=== PATIENT | male | born 1990 | race Caucasian/White ===

== ENCOUNTER 2017-03-01 18:36 | Emergency (ER) | payer BC ==
[2017-03-01 18:57] VITALS: BP 139/81
--- NOTE | 2017-03-01 19:12 | EDM.PDOC ---
ED HPI GENERAL MEDICAL PROBLEM - General Chief Complaint: Eye Problems Stated Complaint: POSS RIGHT EYE INJURY Time Seen by Provider: 03/01/17 19:08 - History of Present Illness INITIAL COMMENTS - FREE TEXT/NARRATIVE: 26-year-old male presents emergency room with an eye injury. Patient developed some eye discomfort early this morning while at work. He cannot recall exactly what may have happened or what could've got into his eye. 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 Last tetanus shot about a year ago. Right Eye Pain Score (Numeric/FACES): 0 - Related Data Allergies Allergy/AdvReac Type Severity Reaction Status Date / Time No Known Allergies Allergy Verified 03/01/17 18:57 Home Meds: Home Meds Buprenorphine HCl/Naloxone HCl [Suboxone 4 mg-1 mg Sl Film] 6 mg SL DAILY [History] cloNIDine HCl [Clonidine HCl ER] 0.1 mg PO DAILY 03/01/17 [History] ED ROS GENERAL - Review of Systems Review Of Systems: See Below Constitutional: Reports: No Symptoms HEENT: Reports: Eye Pain. Denies: Ear Pain, Rhinitis, Sinus Problem, Vertigo Respiratory: Reports: No Symptoms Cardiovascular: Reports: No Symptoms GI/Abdominal: Reports: No Symptoms ED EXAM GENERAL W FULL EYE - Physical Exam Exam: See Below Exam Limited By: No Limitations General Appearance: Alert, No Apparent Distress Eye Exam: Right Eye: Conjunctival Injection, Corneal Abrasion, Bilateral Eye: EOMI Visual Acuity (R) 20/: 40 Visual Acuity (L) 20/: 20 With Correction: No Eyelids: Bilateral: Normal Appearance Cornea Exam: Right: Corneal Abrasion, Examined with Flourescein Extraocular Movements: Bilateral: Intact Pupillary Reaction: Bilateral: Brisk Anterior Chamber: Bilateral: Normal Appearance Neck: Normal Inspection, Supple, Non-Tender, Full Range of Motion. No: Lymphadenopathy (L), Lymphadenopathy (R) Respiratory/Chest: No Respiratory Distress, Lungs Clear, Normal Breath Sounds Cardiovascular: Regular Rate, Rhythm, No Edema, No Murmur Lymphatic: No Adenopathy Course - Vital Signs Last Recorded V/S: Last Vital Signs Temp 37.0 C 03/01/17 18:54 Pulse 95 03/01/17 18:54 Resp 20 03/01/17 18:54 BP 139/81 03/01/17 18:54 Pulse Ox 96 03/01/17 18:54 - Orders/Labs/Meds Meds: Medications Discontinued Medications Generic Name Dose Route Start Last Admin Trade Name Eze PRN Reason Stop Dose Admin Erythromycin 1 gm 03/01/17 20:51 03/01/17 20:55 Erythromycin 0.5% Ophth Oint EYEBOTH 03/01/17 20:52 1 dose ONETIME ONE Administration Fluorescein Sodium/Benoxinate HCl 1 ml 03/01/17 20:27 03/01/17 20:35 Fluress Ophth Soln EYERT 03/01/17 20:28 1 ml ONETIME ONE Administration Proparacaine HCl 1 ml 03/01/17 20:27 03/01/17 20:33 Proparacaine 0.5% Ophth Soln EYERT 03/01/17 20:28 1 ml ONETIME ONE Administration - Re-Assessments/Exams Free Text/Narrative Re-Assessment/Exam: 03/01/17 21:02 Patient was thoroughly examined around the right eye no obvious foreign bodies were identified. With slit-lamp examination the anterior chamber is clear he's got the obvious healing abrasion at about 7:30 8:00. No foreign bodies identified over the remainder the cornea or remainder of the eye, eyelids inverted no foreign bodies found. The patient's discomfort has been in proving during the course of the day, he does not feel like he needs anything for pain at this time. Departure - Departure Time of Disposition: 21:03 Disposition: Home, Self-Care 01 Clinical Impression: Corneal abrasion - Discharge Information Referrals: PCP,None [Primary Care Provider] - Forms: ED Department Discharge Additional Instructions: Return to the emergency room with any questions problems or worsening symptoms. Your given some erythromycin ointment use about a third of an inch to this to your right eye every couple hours while awake. If you are still having any symptoms in the morning follow-up with one of the local eye doctors to have this rechecked.
[2017-03-01] MEDS ORDERED: Benoxinate/Fluorescein 0.4-0.25% Ophth Soln 5 ML Bottle EYERT ONE (20:27)
[2017-03-01] MEDS ORDERED: Proparacaine 0.5% Ophth Soln 15 ML Bottle EYERT ONE (20:27)
[2017-03-01] MEDS ORDERED: Erythromycin Base 0.5% Ophth Oint 1 GM Tube EYEBOTH ONE (20:51)
== END 2017-03-01 21:10 | disposition home or self-care (01) ==
LOC: JD.ED 18:36
DX: S05.01XA Injury of conjunctiva and corneal abrasion without foreign body, right eye, initial encounter (principal); Z79.899 Other long term (current) drug therapy; X58.XXXA Exposure to other specified factors, initial encounter; Y92.69 Other specified industrial and construction area as the place of occurrence of the external cause; Y99.0 Civilian activity done for income or pay
CPT/HCPCS: 99283; A9270

== ENCOUNTER 2017-04-06 20:30 | Emergency (ER) | payer BC ==
[2017-04-06 20:41] VITALS: BP 148/78
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
[2017-04-06] MEDS ORDERED: Ketorolac 60 MG/2 ML SDV IM ONE (20:55)
== END 2017-04-06 21:23 | disposition home or self-care (01) ==
LOC: JD.ED 20:30
DX: N45.3 Epididymo-orchitis (principal); N41.9 Inflammatory disease of prostate, unspecified; I10 Essential (primary) hypertension; F17.210 Nicotine dependence, cigarettes, uncomplicated; Z79.899 Other long term (current) drug therapy
CPT/HCPCS: 96372; 99284; J1885

== ENCOUNTER 2017-05-10 18:06 | Emergency (ER) | payer BC ==
[2017-05-10 18:24] VITALS: BP 165/87
[2017-05-10] MEDS ORDERED: Ketorolac 60 MG/2 ML SDV IM ONE (18:30)
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
== END 2017-05-10 18:54 | disposition home or self-care (01) ==
LOC: JD.ED 18:06
DX: N45.3 Epididymo-orchitis (principal); I10 Essential (primary) hypertension; Z79.899 Other long term (current) drug therapy
CPT/HCPCS: 96372; 99284; J1885; 99283

== ENCOUNTER 2017-11-15 14:29 | Emergency (ER) | payer BC ==
[2017-11-15] MEDS ORDERED: cloNIDine 0.1 MG Tab PO ONE (14:59)
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
[2017-11-15 15:07] VITALS: BP 157/94
== END 2017-11-15 16:47 | disposition home or self-care (01) ==
LOC: JD.ED 14:29
DX: F41.9 Anxiety disorder, unspecified (principal); F10.10 Alcohol abuse, uncomplicated; R94.6 Abnormal results of thyroid function studies; R79.89 Other specified abnormal findings of blood chemistry; R80.9 Proteinuria, unspecified; I10 Essential (primary) hypertension
CPT/HCPCS: 36415; 80053; 80306; 81001; 84443; 85025; 99283; A9270; G0480; 99284

== ENCOUNTER 2017-12-21 07:16 | Emergency (ER) | payer BC, OTHER ==
[2017-12-21 07:55] VITALS: BP 157/91
[2017-12-21] MEDS ORDERED: Ondansetron 4 MG/2 ML SDV IVPUSH ONE ×2 (07:57→11:42)
[2017-12-21] MEDS ORDERED: Sodium Chloride 0.9% 10 ML Syringe FLUSH PRN (07:57)
[2017-12-21] MEDS ORDERED: LORazepam 2 MG/ML SDV IVPUSH ONE ×2 (07:59→11:42)
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
[2017-12-21] MEDS: Sodium Chloride 0.9% 2,000 ML IV SCH ×2 (08:38→08:45)
== END 2017-12-21 12:08 | disposition home or self-care (01) ==
LOC: JD.ED 07:16
DX: F10.230 Alcohol dependence with withdrawal, uncomplicated (principal); F10.220 Alcohol dependence with intoxication, uncomplicated; R79.89 Other specified abnormal findings of blood chemistry; I10 Essential (primary) hypertension; Y90.0 Blood alcohol level of less than 20 mg/100 ml
CPT/HCPCS: 36415; 80053; 80306; 83735; 85025; 96361; 96374; 96375; 96376; 99285; G0480; J2060; J2405; J7040; J7050; 99284

== ENCOUNTER 2018-01-19 15:13 | Emergency (ER) | payer SELFPAY ==
[2018-01-19 15:26] VITALS: BP 146/92
[2018-01-19] MEDS ORDERED: Ketorolac 60 MG/2 ML SDV IM ONE (15:48)
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
== END 2018-01-19 16:19 | disposition home or self-care (01) ==
LOC: JD.ED 15:13
DX: N45.3 Epididymo-orchitis (principal); Z79.899 Other long term (current) drug therapy; I10 Essential (primary) hypertension; Z86.14 Personal history of Methicillin resistant Staphylococcus aureus infection
CPT/HCPCS: 96372; 99284; J1885; 99283

== ENCOUNTER 2018-02-06 07:19 | Emergency (ER) | payer SELFPAY ==
[2018-02-06] MEDS ORDERED: Sodium Chloride 0.9% 1,000 ML IV STA (07:45)
[2018-02-06] MEDS ORDERED: Ondansetron 4 MG/2 ML SDV IVPUSH ONE (07:45)
[2018-02-06] MEDS ORDERED: Sodium Chloride 0.9% 10 ML Syringe FLUSH PRN (07:45)
[2018-02-06] MEDS ORDERED: LORazepam 2 MG/ML SDV IVPUSH ONE (07:46)
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
[2018-02-06 09:07] VITALS: BP 123/77
== END 2018-02-06 09:09 | disposition home or self-care (01) ==
LOC: JD.ED 07:19
DX: F10.230 Alcohol dependence with withdrawal, uncomplicated (principal); F17.210 Nicotine dependence, cigarettes, uncomplicated
CPT/HCPCS: 36415; 80053; 83690; 85025; 96361; 96374; 96375; 99285; G0480; J2060; J2405; J7040; J7050

== ENCOUNTER 2018-03-28 15:59 | Emergency (ER) | payer SELFPAY ==
[2018-03-28 16:15] VITALS: BP 147/93
[2018-03-28] MEDS ORDERED: Sodium Chloride 0.9% 10 ML Syringe FLUSH PRN (16:31)
[2018-03-28] MEDS ORDERED: LORazepam 2 MG/ML SDV IVPUSH ONE (16:32)
[2018-03-28] MEDS ORDERED: Ondansetron 4 MG/2 ML SDV IVPUSH ONE (16:32)
[2018-03-28] MEDS ORDERED: Sodium Chloride 0.9% 1,000 ML IV ONE (16:32)
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
== END 2018-03-28 18:15 | disposition home or self-care (01) ==
LOC: JD.ED 15:59
DX: F10.220 Alcohol dependence with intoxication, uncomplicated (principal); F41.0 Panic disorder [episodic paroxysmal anxiety]; I10 Essential (primary) hypertension; Y90.6 Blood alcohol level of 120-199 mg/100 ml; Z79.899 Other long term (current) drug therapy
CPT/HCPCS: 36415; 80053; 83690; 85025; 96361; 96374; 96375; 99285; G0480; J2060; J2405; J7040; J7050

== ENCOUNTER 2018-09-08 18:23 | Emergency (ER) | payer SELFPAY ==
[2018-09-08] MEDS ORDERED: Fluorescein 0.6 MG Ophth Strip EYEBOTH STA (18:30)
[2018-09-08] MEDS ORDERED: Proparacaine 0.5% Ophth Soln 15 ML Bottle EYEBOTH STA (18:30)
[2018-09-08 18:34] VITALS: BP 154/73
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
== END 2018-09-08 19:40 | disposition home or self-care (01) ==
LOC: JD.ED 18:23
DX: T15.91XA Foreign body on external eye, part unspecified, right eye, initial encounter (principal); I10 Essential (primary) hypertension; F17.290 Nicotine dependence, other tobacco product, uncomplicated; Z79.899 Other long term (current) drug therapy; X58.XXXA Exposure to other specified factors, initial encounter
CPT/HCPCS: 99283

== ENCOUNTER 2018-11-16 00:54 | Emergency (ER) | payer SELFPAY ==
[2018-11-16 01:09] VITALS: BP 145/87
[2018-11-16] MEDS ORDERED: Fluorescein 0.6 MG Ophth Strip EYEBOTH ONE (01:23)
[2018-11-16] MEDS ORDERED: Fluorescein 0.6 MG Ophth Strip ONE (01:25)
[2018-11-16] MEDS ORDERED: LORazepam 1 MG Tab PO ONE (01:35)
[2018-11-16] MEDS ORDERED: Erythromycin Base 0.5% Ophth Oint 1 GM Tube EYEBOTH ONE (01:35)
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
== END 2018-11-16 03:25 | disposition home or self-care (01) ==
LOC: JD.ED 00:54
DX: H16.133 Photokeratitis, bilateral (principal); I10 Essential (primary) hypertension
CPT/HCPCS: 99283; A9270

== ENCOUNTER 2019-05-28 10:57 | Emergency (ER) | payer SELFPAY ==
[2019-05-28 11:12] VITALS: BP 151/86; PULSE 88
[2019-05-28] MEDS: Fluorescein 1 MG Ophth Strip ONE (11:29)
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
[2019-05-28] MEDS: Fluorescein 1 MG Ophth Strip EYERT ONE (11:35)
== END 2019-05-28 12:00 | disposition home or self-care (01) ==
LOC: JD.ED 10:57
DX: H57.89 Other specified disorders of eye and adnexa (principal); I10 Essential (primary) hypertension; F41.9 Anxiety disorder, unspecified; F17.200 Nicotine dependence, unspecified, uncomplicated; Z79.899 Other long term (current) drug therapy
CPT/HCPCS: 99283

== ENCOUNTER 2019-05-30 12:15 | Emergency (ER) | payer SELFPAY ==
[2019-05-30 12:40] VITALS: BP 104/72; PULSE 91
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
== END 2019-05-30 13:42 | disposition home or self-care (01) ==
LOC: JD.ED 12:15
DX: G56.01 Carpal tunnel syndrome, right upper limb (principal); I10 Essential (primary) hypertension; F41.9 Anxiety disorder, unspecified; F17.210 Nicotine dependence, cigarettes, uncomplicated; Z79.899 Other long term (current) drug therapy
CPT/HCPCS: 99282; 99283

== ENCOUNTER 2019-07-06 00:33 | Emergency (ER) | payer SELFPAY ==
[2019-07-06 00:45] VITALS: BP 141/95; PULSE 98
[2019-07-06] MEDS ORDERED: Ketorolac 60 MG/2 ML SDV IM ONE (00:54)
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
[2019-07-06] MEDS ORDERED: cefTRIAXone 1 GM, Lidocaine 1% 2.1 ML IM SCH ×2 (02:15)
== END 2019-07-06 02:23 | disposition home or self-care (01) ==
LOC: JD.ED 00:33
DX: N45.1 Epididymitis (principal); N41.0 Acute prostatitis; I10 Essential (primary) hypertension; F41.9 Anxiety disorder, unspecified; E66.9 Obesity, unspecified
CPT/HCPCS: 96372; 99283; J0696; J1885; J2001

== ENCOUNTER 2019-07-14 18:20 | Emergency (ER) | payer SELFPAY ==
[2019-07-14] MEDS ORDERED: LORazepam 2 MG/ML SDV IM ONE (19:10)
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
== END 2019-07-14 19:30 | disposition home or self-care (01) ==
LOC: JD.ED 18:20
DX: G56.01 Carpal tunnel syndrome, right upper limb (principal); F41.9 Anxiety disorder, unspecified; I10 Essential (primary) hypertension; E66.9 Obesity, unspecified; Z68.31 Body mass index [BMI] 31.0-31.9, adult; Z79.899 Other long term (current) drug therapy
CPT/HCPCS: 96372; 99283; J2060

== ENCOUNTER 2019-08-12 16:31 | Emergency (ER) | payer SELFPAY ==
[2019-08-12 16:46] VITALS: BP 124/78; PULSE 86
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
== END 2019-08-12 17:18 | disposition home or self-care (01) ==
LOC: JD.ED 16:31
DX: G56.01 Carpal tunnel syndrome, right upper limb (principal)
CPT/HCPCS: 99283

== ENCOUNTER 2019-10-09 18:08 | Emergency (ER) | payer SELFPAY ==
[2019-10-09] MEDS ORDERED: levETIRAcetam 500 MG in Sodium Chloride 0.9% 100 ML IV ONE (18:12)
[2019-10-09 18:14] VITALS: BP 144/96; PULSE 98
[2019-10-09] MEDS ORDERED: Dextrose 5%-0.9% NaCl 1,000 ML IV SCH (18:15)
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
== END 2019-10-09 18:35 | disposition left against medical advice (07) ==
LOC: JD.ED 18:08
DX: G40.909 Epilepsy, unspecified, not intractable, without status epilepticus (principal); I10 Essential (primary) hypertension; F41.9 Anxiety disorder, unspecified; E66.9 Obesity, unspecified; Z79.899 Other long term (current) drug therapy; Z68.30 Body mass index [BMI] 30.0-30.9, adult
CPT/HCPCS: 99284

== ENCOUNTER 2019-10-18 04:28 | Emergency (ER) | payer SELFPAY ==
[2019-10-18] MEDS ORDERED: LORazepam 2 MG/ML SDV ONE (05:02)
[2019-10-18] MEDS ORDERED: LORazepam 2 MG/ML SDV IVPUSH ONE (05:09)
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
[2019-10-18] MEDS ORDERED: Magnesium Sulfate/Water 2 GM in Premix Bag 1 BAG IV ONE (06:16)
[2019-10-18 06:48] VITALS: BP 110/53; PULSE 64
== END 2019-10-18 07:35 | disposition home or self-care (01) ==
LOC: JD.ED 04:28
DX: E83.42 Hypomagnesemia (principal); I10 Essential (primary) hypertension; F41.0 Panic disorder [episodic paroxysmal anxiety]; E66.9 Obesity, unspecified; Z68.31 Body mass index [BMI] 31.0-31.9, adult; R56.9 Unspecified convulsions; F17.228 Nicotine dependence, chewing tobacco, with other nicotine-induced disorders; Z79.899 Other long term (current) drug therapy
CPT/HCPCS: 36415; 80053; 80307; 82550; 82962; 83735; 84100; 85007; 85027; 96365; 96375; 99285; J2060; J3475; 99284